=== PATIENT | female | born 1985 | race Caucasian/White ===

== ENCOUNTER 2017-10-12 11:59 | Outpatient (RCR) | payer OTHER, SELFPAY | END 2017-10-13 23:59 | LOC: NS 11:59 | PROVIDERS: Family Provider Family Medicine; PCP Family Medicine; Visit Provider Obstetrics & Gynecology | DX: Z71.3 Dietary counseling and surveillance (principal); Z68.41 Body mass index [BMI] 40.0-44.9, adult | CPT/HCPCS: 97802 ==

== ENCOUNTER 2017-10-26 11:00 | Outpatient (RCR) | payer OTHER, SELFPAY | END 2017-11-12 23:59 | LOC: NS 11:00 | PROVIDERS: Family Provider Family Medicine; PCP Family Medicine; Visit Provider Obstetrics & Gynecology | DX: Z68.41 Body mass index [BMI] 40.0-44.9, adult (principal); Z71.3 Dietary counseling and surveillance | CPT/HCPCS: 97803 ==

== ENCOUNTER 2017-12-07 11:30 | Outpatient (RCR) | payer OTHER, SELFPAY | END 2017-12-13 23:59 | LOC: NS 11:30 | PROVIDERS: Family Provider Family Medicine; PCP Family Medicine; Visit Provider Obstetrics & Gynecology | DX: Z68.41 Body mass index [BMI] 40.0-44.9, adult (principal); Z71.3 Dietary counseling and surveillance | CPT/HCPCS: 97803 ==

== ENCOUNTER → 2017-12-11 16:07 | Outpatient (CLI) | payer OTHER, SELFPAY ==
[2017-12-11 18:02] LABS: hCG Titer Quant., Serum < 1 mIU/mL (<9 non-preg)
== END ==
PROVIDERS: Visit Provider Obstetrics & Gynecology
DX: N91.2 Amenorrhea, unspecified (principal)
CPT/HCPCS: 36415; 84144; 84702

== ENCOUNTER → 2017-12-28 07:58 | Outpatient (CLI) | payer OTHER, SELFPAY ==
--- NOTE | 2017-12-28 08:01 | US_ITS ---
STUDY: ULTRASOUND TRANSVAGINAL CLINICAL: Female, 32 years old. Polycystic ovarian syndrome. TECHNIQUE: Transabdominal and Transvaginal COMPARISON: None. FINDINGS: Normal uterine size measuring 9.4 x 4.5 x 3.6 cm in maximal craniocaudal dimension. There are no myometrial masses. Normal endometrial thickness measuring 11 mm. There are no endometrial masses, and there is no fluid in the endometrial cavity. Normal uterine cervix. Normal right ovary, measuring 3.9 x 3.4 x 2.9 cm. There is a 2.9 cm cyst. Normal left ovary, measuring 2.5 x 1.7 x 1.2 cm. There are multiple follicles without a dominant cyst. There is no free fluid in the pelvis. Polycystic ovary disease: No. US/Pelvic (Non ) IMPRESSION: 2.9 cm cyst in the right ovary, otherwise within normal limits. Electronically Signed: Murphy Lau MD at 12:14 EDT , Service support ,
--- NOTE | 2017-12-28 08:16 | US_ITS ---
STUDY: ULTRASOUND TRANSVAGINAL CLINICAL: Female, 32 years old. Polycystic ovarian syndrome. TECHNIQUE: Transabdominal and Transvaginal COMPARISON: None. FINDINGS: Normal uterine size measuring 9.4 x 4.5 x 3.6 cm in maximal craniocaudal dimension. There are no myometrial masses. Normal endometrial thickness measuring 11 mm. There are no endometrial masses, and there is no fluid in the endometrial cavity. Normal uterine cervix. Normal right ovary, measuring 3.9 x 3.4 x 2.9 cm. There is a 2.9 cm cyst. Normal left ovary, measuring 2.5 x 1.7 x 1.2 cm. There are multiple follicles without a dominant cyst. There is no free fluid in the pelvis. Polycystic ovary disease: No. US/Transvaginal Non- IMPRESSION: 2.9 cm cyst in the right ovary, otherwise within normal limits. Electronically Signed: Murphy Lau MD at 12:14 EDT , Service support ,
== END ==
PROVIDERS: Family Provider Family Medicine; PCP Family Medicine; Visit Provider Obstetrics & Gynecology
DX: E28.2 Polycystic ovarian syndrome (principal)
CPT/HCPCS: 76830; 76856; 93976

== ENCOUNTER 2017-12-28 10:35 | Outpatient (RCR) | payer OTHER, SELFPAY | END 2018-01-12 23:59 | LOC: NS 10:35 | PROVIDERS: Family Provider Family Medicine; PCP Family Medicine; Visit Provider Obstetrics & Gynecology | DX: Z68.41 Body mass index [BMI] 40.0-44.9, adult (principal); Z71.3 Dietary counseling and surveillance | CPT/HCPCS: 97803 ==

== ENCOUNTER → 2018-01-09 08:49 | Outpatient (CLI) | payer OTHER, SELFPAY ==
[2018-01-09 11:01] LABS: AST(SGOT) 20 U/L (15-37); Alanine Aminotransfer ALT/SGPT 39 U/L (13-56); Albumin, Serum 3.6 g/dL (3.2-5.0); Alkaline Phosphatase 73 U/L (45-117); Anion Gap 8 (5-15); BUN 10 mg/dL (7-18); BUN/Creat Ratio 19.3 RATIO (10-20); Bilirubin, Direct < 0.05 mg/dL (0.00-0.30); Calcium,Total 8.3 mg/dL (8.5-10.1); Chloride 106 mmol/L (98-107); Creatinine, Serum 0.52 mg/dL (0.55-1.02); EST Glomerular Filtration Rate 147 mL/min (>60); Est Glom Filt Rate - Afr Amer 178 mL/min (>60); Globulin 3.5 g/dL (2.2-4.2); Glucose 91 mg/dL (74-106); Phosphorus 3.3 mg/dL (2.5-4.9); Potassium 4.2 mmol/L (3.5-5.1); Protein, Total 7.1 g/dL (6.4-8.2); Sodium Level 138 mmol/L (136-145)
[2018-01-09 11:07] LABS: Rubella IgG 124.3 IU/mL
[2018-01-10 16:29] LABS: V-Zoster IgG (Immunity) 306 index (Immune >165)
== END ==
PROVIDERS: Family Provider Family Medicine; PCP Family Medicine; Visit Provider Obstetrics & Gynecology Reproductive Endocrinology
DX: Z01.83 Encounter for blood typing (principal); Z11.59 Encounter for screening for other viral diseases; E66.09 Other obesity due to excess calories; E28.2 Polycystic ovarian syndrome
CPT/HCPCS: 36415; 80048; 80076; 84100; 86762; 86787; 86900

== ENCOUNTER → 2018-01-31 11:46 | Outpatient (CLI) | payer OTHER, SELFPAY ==
--- NOTE | 2018-01-31 11:48 | RAD_ITS ---
STUDY: HYSTEROSALPINGOGRAM. REASON FOR EXAM: Female, 32 years old. Infertility. FLUOROSCOPY TIME (if supplied): (0:51) minutes/seconds TECHNIQUE: A hysterosalpingogram was performed by the healthcare analyst. Imaging was provided. COMPARISON: None. FINDINGS: The uterus is unremarkable. The fallopian tubes are patent with spill bilaterally. RAD/Salpingogram IMPRESSION: Unremarkable hysterosalpingogram. Electronically Signed: Pankaj Batista MD at 14:44 EDT Tel [phone], Service support ,
== END ==
PROVIDERS: Family Provider Family Medicine; PCP Family Medicine; Visit Provider Obstetrics & Gynecology
DX: N97.9 Female infertility, unspecified (principal)
CPT/HCPCS: 58340; 74740; Q9967

== ENCOUNTER 2018-02-08 11:00 | Outpatient (RCR) | payer OTHER, SELFPAY | END 2018-02-12 23:59 | disposition home or self-care (01) | LOC: NS 11:00 | PROVIDERS: Family Provider Family Medicine; PCP Family Medicine; Visit Provider Obstetrics & Gynecology | DX: Z68.41 Body mass index [BMI] 40.0-44.9, adult (principal); Z71.3 Dietary counseling and surveillance | CPT/HCPCS: 97803 ==

== ENCOUNTER 2018-03-01 08:26 | Outpatient (RCR) | payer OTHER, SELFPAY | END 2018-03-15 23:59 | LOC: NS 08:26 | PROVIDERS: Family Provider Family Medicine; PCP Family Medicine; Visit Provider Obstetrics & Gynecology | DX: Z68.41 Body mass index [BMI] 40.0-44.9, adult (principal); Z71.3 Dietary counseling and surveillance | CPT/HCPCS: 97803 ==

== ENCOUNTER → 2018-03-14 08:29 | Outpatient (CLI) | payer OTHER, SELFPAY | PROVIDERS: Family Provider Family Medicine; PCP Family Medicine; Visit Provider Obstetrics & Gynecology | DX: E01.0 Iodine-deficiency related diffuse (endemic) goiter (principal) | CPT/HCPCS: 76536 ==

== ENCOUNTER 2018-04-12 11:00 | Outpatient (RCR) | payer OTHER, SELFPAY | END 2018-04-12 23:59 | LOC: NS 11:00 | PROVIDERS: Family Provider Obstetrics & Gynecology; PCP Obstetrics & Gynecology; Visit Provider Obstetrics & Gynecology | DX: Z68.41 Body mass index [BMI] 40.0-44.9, adult (principal); Z71.3 Dietary counseling and surveillance | CPT/HCPCS: 97803 ==

== ENCOUNTER 2018-05-03 08:05 | Outpatient (RCR) | payer OTHER, SELFPAY | END 2018-05-15 23:59 | LOC: NS 08:05 | PROVIDERS: Family Provider Obstetrics & Gynecology; PCP Obstetrics & Gynecology; Referring Provider Obstetrics & Gynecology; Visit Provider Obstetrics & Gynecology | DX: E66.01 Morbid (severe) obesity due to excess calories (principal); Z68.41 Body mass index [BMI] 40.0-44.9, adult; Z71.3 Dietary counseling and surveillance ==

== ENCOUNTER 2021-03-08 22:03 | Emergency (ER) | payer OTHER, SELFPAY ==
[2021-03-08 22:03] VITALS: BP 179/100; PULSE 96; RESP 18; TEMP 36.3; O2SAT 98; BMI 38.0
--- NOTE | 2021-03-08 22:33 | RAD_ITS ---
STUDY: X-RAY - LEFT ANKLE REASON FOR EXAM: Female, 35 years old. Injury. Severe pain left ankle after falling this morning. TECHNIQUE: 3 view(s) of the ankle. COMPARISON: None. FINDINGS: Normal visualized distal tibia and fibula. Normal medial and lateral malleoli. Normal tibiotalar articulation and ankle mortise. Normal visualized talus and calcaneus. The visualized subtalar, talonavicular, calcaneocuboid and tarsal articulations are normal. The soft tissue structures are unremarkable. RAD/Ankle min 3 Views IMPRESSION: No acute fracture or dislocation Electronically Signed: Tree Fletcher DO at 23:06 EDT Tel [phone], Service support ,
--- NOTE | 2021-03-09 00:19 | ED.VIS.LOWEX ---
HPI History of Present Illness Chief Complaint: Lower Extremity Injury Informant: patient Occured/Mechanism Mechanism/Context: Yes injury and Yes blunt trauma Onset/Context/Timing Onset: Yesterday Context: Sudden Onset Timing: Continuous Quality of Pain: Dull and Aching Location: Left ankle posteriorly Current Severity: Mild Maximum Severity: Moderate Worsened by: Movement and weightbearing Relieved by: Elevation and rest decrease the pain. She reports she had some control wit Associated Symptoms Associated Symptoms: Positive for Loss of Funtion; Negative for Parasthesia and Weakness Narrative Narrative: Patient is a 35-year-old woman who had blunt twisting injury to her left ankle. She states it went into a hole. She complains of pain posteriorly. She also complains of pain laterally. She denies prior injury. Denies paresthesia, anesthesia medics. She denies knee pain. Tetanus Immunization: <5 years Prior similar symptoms: No Recent Illness/Hospitalization: No [facility] Medical History (Updated 03/09/21 @ 00:[address] Bakari Schmidt MD) History of migraine Home Medications acyclovir 800 mg tablet 800 mg PO Q4H #35 tab 09/06/17 [Rx Last Taken Unknown] cholecalciferol (vitamin D3) 1,250 mcg (50,000 unit) capsule 50,000 unit PO QWEEK 03/08/18 [History Last Taken Unknown] lactobacillus combination no.8 3 billion cell capsule 3,000 mmu cells PO DAILY 03/08/18 [History Last Taken Unknown] metformin 500 mg tablet 2,000 mg PO BID tab 03/08/18 [History Last Taken Unknown] mv-ferrous [id number] 65 mg-1 mg tablet 1 tab PO DAILY 03/08/18 [History Last Taken Unknown] albuterol sulfate 90 mcg/actuation aerosol inhaler 2 puff INHALATION Q6H #8.5 g 07/20/18 [Rx Last Taken Unknown] prednisone 20 mg tablet 20 mg PO DAILY #12 tab 07/20/18 [Rx Last Taken Unknown] azithromycin 250 mg tablet 250 mg PO QDAY #12 tab 06/05/19 [Rx Last Taken Unknown] Allergy/AdvReac Type Severity Reaction Status Date / Time Penicillins Allergy Hives Verified 03/08/21 22:05 Family History Father Hypertension Diabetes High blood cholesterol Mother Diabetes Hypertension Surgical History History of tonsillectomy Social History current occupational status: employed 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 Smoking Status: Never smoker alcohol intake: current alcohol intake frequency: holidays/special occasions only substance use type: does not use caffeine: Yes (only when having a migraine) Type: carbonated beverages seatbelt use: always do you feel safe at home: Yes 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 ROS ROS ED Musculoskeletal Musculoskeletal: Denies arthralgias or myalgias Integumentary Denies Abrasions or rash Neurologic Neurologic: Denies paresthesias or weakness Hematologic/Lymphatic Hematologic/Lymphatic: Denies easy bleeding or easy bruising EXAM Physical Exam Const Vital Signs: 03/08/21 22:03 Temperature 97.4 F L Temperature Source Temporal Pulse Rate 96 Respiratory Rate 18 Blood Pressure 179/100 H Blood Pressure Mean 126 Pulse Ox 98 Oxygen Delivery Method Room Air Positive well nourished and well developed General Appearance ED: well developed HEENT normocephalic and atraumatic Eyes PERRL Eyes Narrative: Extraocular muscles intact Neck full ROM Resp normal respiratory effort Cardio regular rate and regular rhythm Extremity full ROM; Negative for normal to inspection Extremity Narrative: There is soft tissue swelling over the lateral malleolus. There is minimal tenderness of the anterior talofibular joint. There is no pain the patient over the lateral malleolus or the medial malleolus. There is pain palpation posteriorly. There is no discomfort with pressure against the calcaneus. The Achilles tendon is intact. DP and PT pulse are palpable. General Extremety ED: Yes weight-bearing difficulty; Negative for cyanosis or edema General Extremity: weight-bearing difficulty; Negative for cyanosis or edema Neuro oriented x3 and CN's II-XII intact bilaterally Sensorium / Orientation: alert Psych mental status grossly normal Skin no wounds Lesions: no lesions Rashes: no rashes MDM MDM MDM Narrative Medical decision making narrative: X-ray was obtained to evaluate for sprain versus fracture. Three-view x-ray of the left ankle interpreted by me as negative for fracture dislocation. There is no asymmetry of the mortise. There is no foreign body noted. Radiography Diagnostic Testing: Radiology Impression Ankle X-Ray 03/08/21 22:33 IMPRESSION: No acute fracture or dislocation Electronically Signed: Tree Fletcher DO at 23:06 EDT Tel [phone], Service support , Discharge Plan Triage Chief Complaint: Lower Extremity Injury ED Provider: Bakari Schmidt Dx/Rx/DC Orders Clinical Impression: Left ankle sprain Instructions: ED Ankle Sprain (Adult) Prescriptions: No Action acyclovir 800 mg tablet 800 mg PO Q4H Qty: 35 RF: 0 metformin 500 mg tablet 2,000 mg PO BID RF: 0 mv-ferrous [id number] 65 mg-1 mg tablet 65-1 mg tablet 1 tab PO DAILY RF: 0 cholecalciferol (vitamin D3) 50,000 unit capsule 50,000 unit PO QWEEK RF: 0 lactobacillus combination no.8 [Adult Probiotic] 3 billion cell capsule 3,000 mmu cells PO DAILY RF: 0 prednisone 20 mg tablet 20 mg PO DAILY Qty: 12 RF: 0 ProAir HFA 90 mcg/actuation HFA aerosol inhaler 2 puff Inhalation Q6H Qty: 8.5 RF: 0 azithromycin 250 mg tablet 250 mg PO QDAY Qty: 12 RF: 0 Primary Care Provider: Care Physician,No Primary Referrals: Care Physician,No Primary [Primary Care Provider] - Doctor,Your [STAFF PHYSICIAN] - 1 Week if not improving Disposition Disposition: Home, Self Care
== END 2021-03-09 00:28 | disposition home or self-care (01) ==
PROVIDERS: Emergency Provider Emergency Medicine
DX: S93.492A Sprain of other ligament of left ankle, initial encounter (principal); X50.1XXA Overexertion from prolonged static or awkward postures, initial encounter; Y93.9 Activity, unspecified; Y92.9 Unspecified place or not applicable; Y99.9 Unspecified external cause status
CPT/HCPCS: 73610; 99282

== ENCOUNTER 2024-01-16 12:45 | Outpatient (RCR) | payer BC, SELFPAY | END 2024-02-13 23:59 | LOC: NS 12:45 | PROVIDERS: Referring Provider Nurse Practitioner Family; Visit Provider Nurse Practitioner Family | DX: Z71.3 Dietary counseling and surveillance (principal); E66.01 Morbid (severe) obesity due to excess calories; Z68.42 Body mass index [BMI] 45.0-49.9, adult; E28.2 Polycystic ovarian syndrome | CPT/HCPCS: 97802 ==

== ENCOUNTER 2024-02-19 13:52 | Outpatient (RCR) | payer BC, SELFPAY | END 2024-03-15 23:59 | LOC: NS 13:52 | PROVIDERS: Referring Provider Nurse Practitioner Family; Visit Provider Nurse Practitioner Family | DX: Z71.3 Dietary counseling and surveillance (principal); E66.01 Morbid (severe) obesity due to excess calories; E28.2 Polycystic ovarian syndrome; Z68.42 Body mass index [BMI] 45.0-49.9, adult | CPT/HCPCS: 97803 ==